=== PATIENT | male | born 1965 | race Caucasian/White ===

== ENCOUNTER 2016-09-20 15:26 | Emergency (ER) | payer SELFPAY | END 2016-09-20 21:22 | disposition left against medical advice (07) | LOC: D.ER 15:26 | DX: H57.11 Ocular pain, right eye (principal) ==

== ENCOUNTER 2016-09-23 16:44 | Emergency (ER) | payer OTHER | END 2016-09-23 18:59 | disposition home or self-care (01) | LOC: D.ER 16:44 | DX: S05.01XA Injury of conjunctiva and corneal abrasion without foreign body, right eye, initial encounter (principal); X58.XXXA Exposure to other specified factors, initial encounter; Y93.89 Activity, other specified; Y92.89 Other specified places as the place of occurrence of the external cause ==

== ENCOUNTER 2020-04-10 05:40 | Day surgery (SDC) | payer MEDICAID ==
[~2020-04-10] VITALS: Ht 188 cm; Wt 113.9 kg
[~2020-04-10 05:40] MED LIST: ADVIL200 MG; BENADRYL25 MG; CLARITIN 10 MG10 MG PO; CYCLOBENZAPRINE10 MG PO; GABAPENTIN300 MG PO; OMEPRAZOLE40 MG PO; PERCOCET 10-321 EAC1 PO; SINGULAIR10 MG; VENTOLIN HFA [SP8 GM
[2020-04-10 06:40] VITALS: BP 134/90; Ht 188 cm; Wt 113.9 kg
[2020-04-10] MEDS ORDERED: VISTARIL50 MG PO (06:45)
--- NOTE | 2020-04-10 14:03 | NUR ---
0927 IV D/C'D WITH CANNULA INTACT, PRESSURE HELD, AND DRSG PLACED. DISCHARGE INSTRUCTIONS GIVEN AND PT VERBALIZED AN UNDERSTANDING. DISCHARGED HOME IN STABLE CONDITION AND WITHOUT COMPLAINT
--- NOTE | 2020-04-10 15:56 | OP ---
PATIENT NAME: MARZENA CRONIN MEDICAL RECORD: [id number] :67 LOCATION:[facility] ADMISSION DATE: SURGEON: DEMETRIO JUNIOR DO DATE OF OPERATION: 04/10/2020 PROCEDURE PERFORMED: Left knee arthroscopy with partial medial meniscectomy. and. 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 INDICATIONS: Mr. Cronin is a 54-year-old male who has had left knee pain, popping, catching, and locking for quite some time. We got an MRI showing the above findings. I informed that he be at risk for continued pain to the chondromalacia, but that the popping, catching, and locking would get better with the terminale of the meniscus. He was okay with that and was aware of the risks including infection, bleeding, damage to nerves and vessels and the need for further surgery, continued pain, loss of motion of the leg, blood clots, and even . He signed the consent. SURGEON: Demetrio Junior DO DESCRIPTION OF PROCEDURE: The patient was taken to the operative suite, laid in supine position, given general anesthetic and LMA was placed. The left lower extremity was then prepped and draped in sterile fashion. He was then given 2 grams of Ancef. The timeout was performed, everyone was in agreeance with the correct side, site, patient and the procedure. I then began by injecting 0.25% Marcaine with epinephrine at the portal sites and established a lateral portal with an 11-blade scalpel. Trocar entered into the joint, inspected the suprapatellar pouch. No loose body seen in the lateral gutter or medial gutter. I then established a medial portal with an 18-gauge spinal needle and 11-blade scalpel. Trocar was then brought in and the probe was brought in. I probed the cartilage on the medial femoral condyle and saw that it was loose and had large chunk of it at the weightbearing portion, brought a shaver in and did abrasion chondroplasty there. I then made a valgus stress on the knee and got to the meniscus, it was torn from the middle portion of the meniscus all the way to the posterior horn on the undersurface. I trimmed that out with the biter and a shaver and then inspected the ACL, was in good repair and the lateral meniscus was inspected as well as the lateral cartilage with the knee [id number]-yyuh'ed and it was in good repair as well. I then saw that the patella tracked well in the trochlea. He did have some chondromalacia of the patella as well, probably grade II. I then turned the suction on and the water off, removed the excess fluid from the knee. Abran Mcdonnell, certified registered locksmith then closed the knee with 4-0 Monocryl in inverted interrupted fashion and placed Steri-Strips, Adaptic, 4 x 4's, ABD, Webril, Bong wrap on the knee and the patient was awakened and taken to recovery in stable condition. BLOOD LOSS: Minimal. COMPLICATIONS: None. TRANSINT:[id number] Voice Confirmation ID: [id number] DOCUMENT ID: [id number] OPERATIVE REPORT [id number] MONDAY,DEMETRIO SALGADO DO at 1556 CC: [id number] DICTATION DATE: 04/10/20916 IT BUSINESS PROCESS ARCHITECT: 04/10/20 1347 [facility] 04/10/20 [facility] [address] [place] [address]
== END 2020-04-10 09:30 | disposition home or self-care (01) ==
LOC: D.OPS 05:40 → D.PAN 07:00 → D.OPS 07:00
PROVIDERS: ATTEND Orthopaedic Surgery
DX: S83.242A Other tear of medial meniscus, current injury, left knee, initial encounter (principal); X58.XXXA Exposure to other specified factors, initial encounter; M25.561 Pain in right knee; M23.331 Other meniscus derangements, other medial meniscus, right knee

== ENCOUNTER → 2020-08-31 15:45 | Outpatient (CLI) | payer SELFPAY ==
[2020-04-24 12:46] VITALS: BMI 28.9
[~2020-08-31 15:45] MED LIST changes: +BUPRENORPHIN-N1 EACH SL; +VISTARIL50 MG PO
[2020-08-31 16:40] LABS: PROTEIN - BODY FLUID 3.9 G/DL
[2020-08-31 17:46] LABS: EOS BF 1 %; MACROPHAGES BF 78 %; MESOTHELIALS BF 6 %; NEUT - BF 5 %
== END | disposition home or self-care (01) ==
LOC: D.LABREF 15:45
PROVIDERS: ATTEND Orthopaedic Surgery
DX: M17.11 Unilateral primary osteoarthritis, right knee (principal)

== ENCOUNTER 2020-09-01 14:24 | Inpatient (IN) | payer MEDICAID ==
[~2020-09-01] VITALS: Ht 188 cm; Wt 111.4 kg
[2020-09-30] MEDS ORDERED: XANAX0.5 MG PO (12:49)
[2020-09-30] MEDS ORDERED: LIPITOR20 MG PO (12:50)
[2020-09-30] MEDS ORDERED: VOLTAREN100 GM TOPICAL (12:51)
[2020-09-30] MEDS ORDERED: TESTOSTERONE IM (12:52)
[2020-09-30 13:41] LABS: BASOPHILS 0.5 % (0-2); HEMOGLOBIN 12.2 g/dL (13.5-17.5); IMMATURE GRANULOCYTES 0.2 % (0-5); LYMPHOCYTE ABS# 1.93 10x3/uL (1.32-3.57); LYMPHOCYTES 31.3 % (15-50); MCHC 32.1 g/dL (31.0-37.0); MCV 90.3 fL (80.0-100.0); MEAN PLATELET VOLUME 10.4 fL (7.4-10.4); NEUTROPHIL ABS# 3.57 10x3/uL (1.78-5.38); PLATELET COUNT 247 10x3/uL (130-400); RBC 4.21 10x6/uL (4.20-6.10); RDW 13.8 % (11.5-14.5); WBC 6.2 10x3/uL (4.8-10.8)
[2020-09-30 13:53] LABS: CALC OSMOLALITY 279 mosm/kg (275-300); CALCIUM 8.7 mg/dL (8.5-10.1); CARBON DIOXIDE 32.7 mmol/L (21.0-32.0); CHLORIDE - SERUM 102 mmol/L (98-107); CREATININE - SERUM 0.9 mg/dL (0.6-1.3); GLUCOSE 100 mg/dL (74-106); POTASSIUM - SERUM 3.9 mmol/L (3.5-5.1); SODIUM 139 mmol/L (136-145); UREA NITROGEN 17 mg/dL (7-18); eGFR NON AFRICAN AMERICAN > 90 mL/min (90-120)
[2020-09-30 13:54] LABS: BILIRUBIN NEGATIVE (NEGATIVE); KETONE NEGATIVE (NEGATIVE); NITRITE NEGATIVE (NEGATIVE); UROBILINOGEN NORMAL mg/dL (< 2)
[2020-09-30 13:56] LABS: APTT 30.4 SECONDS (22.8-39.4); INR 1.07 (0.85-1.17); PROTIME 12.9 SECONDS (11.6-15.0)
[2020-10-06] VITALS (13 sets, daily range): BP systolic 110–175; BP diastolic 65–97; Ht 188 cm; Wt 111.4 kg
--- NOTE | 2020-10-06 10:06 | NUR ---
OPERATIVE LEG CLEANSED WITH HIBECLENS AND ALCOHOL PRIOR TO PREP FROM THIGH TO TOES CIRCUMFERENTIALLY. RIGHT LEG PREPPED WITH CHLORAPREP X2 FROM THIGH TO TOES CIRCUMFERENTIALLY. RN IN STERILE ATTIRE TO PREP. PLASMABLADE SET TO 6/8 GROUNDING PAD LEFT THIGH TRAFFIC KEPT TO MINIMUM
[2020-10-06 11:49] LABS: BASOPHILS 0.2 % (0-2); EOSINOPHILS 0.6 % (0-7); HEMOGLOBIN 12.1 g/dL (13.5-17.5); IMMATURE GRANULOCYTES 0.3 % (0-5); LYMPHOCYTE ABS# 0.87 10x3/uL (1.32-3.57); LYMPHOCYTES 8.6 % (15-50); MCH 29.1 pg (26.0-34.0); MCHC 32.7 g/dL (31.0-37.0); MCV 88.9 fL (80.0-100.0); MEAN PLATELET VOLUME 10.3 fL (7.4-10.4); MONOCYTES 0.9 % (2-11); NEUTROPHIL ABS# 9.08 10x3/uL (1.78-5.38); NEUTROPHILS 89.4 % (40-80); PLATELET COUNT 205 10x3/uL (130-400); RBC 4.16 10x6/uL (4.20-6.10); RDW 13.6 % (11.5-14.5); WBC 10.2 10x3/uL (4.8-10.8)
[2020-10-06 12:02] LABS: ALBUMIN 3.5 g/dL (3.4-5.0); ANION GAP 13.8 mmol/L (8-16); BILIRUBIN - TOTAL 0.22 mg/dL (0.2-1.3); CALCIUM 8.5 mg/dL (8.5-10.1); CARBON DIOXIDE 29.1 mmol/L (21.0-32.0); CREATININE - SERUM 1.1 mg/dL (0.6-1.3); POTASSIUM - SERUM 3.9 mmol/L (3.5-5.1); PROTEIN - SERUM 6.9 g/dL (6.4-8.2)
--- NOTE | 2020-10-06 14:45 | OP ---
PATIENT NAME: MARZENA CRONIN MEDICAL RECORD: [id number] :67 LOCATION:D. D.1209 ADMISSION DATE:10/06/20 SURGEON: DEMETRIO JUNIOR DO DATE OF OPERATION: 10/06/2020 PROCEDURE PERFORMED: Right total knee arthroplasty. PREOPERATIVE DIAGNOSIS: Right knee osteoarthritis. POSTOPERATIVE DIAGNOSIS: Right knee osteoarthritis. INDICATIONS: Mr. Cronin is a 55-year-old male who has had right knee pain for quite some time. He was tired dealing with the pain. I then scoped in, told him he had a grade IV chondromalacia of the medial femoral condyle as well as the patella and he would need a knee replacement. This was several months ago. He was aware of that and aware of the risks of the surgery including infection, bleeding, damage to nerves, vessels, need for further surgery, continued pain, failure of implants, loosening, blood clots, arthrofibrosis of the knee and even and he signed the consent. SURGEON: Demetrio Junior DO DESCRIPTION OF PROCEDURE: The patient was taken to the operative suite, after given a block by anesthesia in the preoperative area, laid in supine position, given general anesthetic and LMA was placed. He was given 2 grams of Ancef, 80 of mg gentamicin and a gram of TXA. The right lower extremity was then prepped and draped in sterile fashion. Timeout was performed. Everyone was in agreeance with the correct side, site, patient and procedure. I then marked out the incision on the anterior knee, covered in Ioban, used a 10-blade scalpel made careful dissection down to the capsule. I used a fresh 10-blade, made a medial parapatellar approach to the capsule. We coagulated any bleeding with Aquamantys. Patella was then everted and removed part of the fat pad. I then milled down the patella and drilled a 32 patella and mixed the cement, put the cement on the patella and on the implants, squeezed it into place and removed the excess cement and then squeezed it around for 10 minutes while it dried. While it was drying, I exposed the femur, removed the ACL into the femoral canal with a drill and cut the distal femur off the intramedullary guide after I pinned it into place, removed the mehdi. I then exposed the tibia and cut the proximal tibia through extramedullary guide and then remove that, brought the knee in extension and removed menisci as well and the extra bone that was not removed. I then flexed the knee up and sized the femur to be a 12. I used a 4-in-1 cutting block then and cut the femur through the 4-in-1 cutting block, removed the bone. I then sized the tibia to be a G and pinned it into place and trialed the 12-femur and put a 10-poly in between and fit very well, had good stability, varus and valgus stress in extension and flexion. I then drilled the lug holes for the femur and the 2 holes on the tibia, irrigated and then impacted on the TM tibia and TM femur and then put a 10-poly medial congruent bearing in between and locked it into place. I then brought the knee into extension and irrigated with 10% povidine and iodine and 500 mL normal saline solution, let it sit for a minute and then irrigated that out with a liter of normal saline. I then used the joint cocktail, then injected around the periosteum into the quad and the knee and then put in the vancomycin and tobramycin powder, closed the knee capsule with #1 Vicryl in clmaop-th-hjpet fashion and Abran Mcdonnell, certified ophthalmic technologist ran a #1 Stratafix over that and then closed the skin with 2-0 Vicryl in inverted interrupted fashion, OPERATIVE REPORT [id number] MONDAY,MARZENA OCHOA put ZipLine, Adaptic, 4 x 4s, ABD, cast padding and an Bong wrap and a MU hose stocking up to the knee. He was then awakened and taken to recovery in stable condition, given another gram of TXA prior to closing. Blood loss was approximately 200 mL. COMPLICATIONS: None. TRANSINT:[id number] Voice Confirmation ID: [id number] DOCUMENT ID: [id number] DEMETRIO JUNIOR DO at 1445 CC: [id number] DICTATION DATE: 10/06/2059 ASBESTOS MICROSCOPIST: 10/06/20 1404 ADM IN [facility] [address] [place] [address]
--- NOTE | 2020-10-06 19:30 | MORECARE ---
CASE MANAGEMENT DISCHARGE SUMMARY PATIENT: MARZENA HANSEN UNIT: [id number] ADM DATE: 10/06/20 AGE: 55 : 67 SEX: M ROOM/BED: D.1209 AUTHOR: DIDI,DOC PHYSICIAN: REFERRING PHYSICIAN: OSCAR JUNIOR DO DATE OF SERVICE: 10/06/20 Case Management Discharge Planning Summary DCP REVIEW SUMMARY ANTICIPATED D/C DATE: EXPECTED LOS : CASE STATUS: DCP Initiated INITIAL REVIEW: 10/06/2020 INITIAL REVIEWER: Kannan Rodrigues FINAL DISCHARGE DISPOSITION: : FINAL REVIEWER: FINAL REVIEW DATE: DCP Focus Questions & Answers QUESTION: ANSWER : PATIENT: MARZENA HANSEN ENCOUNTER: [id number] MEDICAL RECORD#: [id number] ADMISSION DATE: 10/06/2020 DISCHARGE DATE: ATTENDING MD: OSCAR LUNDBERG : AGE: 55 MARITAL STATUS: S DC PLAN ID: [id number] FACILITY: [facility] PRINTED ON: 10/06/20 19:30 CT All edits/amendments must be made on the electronic document DICTATION DATE: 10/06/201929 LINE INSPECTOR: JOSE 10/06/201929 RPT#: [id number] DC DATE: STATUS: ADM IN [facility] [address] [place] [address] END OF REPORT
--- NOTE | 2020-10-06 19:30 | NUR ---
ALERT C/O PAIN TO RIGHT KNEE, REQUESTING PAIN MEDICATION, PEROCET AND VISTRIL GIVEN ORDERED, CPM IN USE, FALL PRECAUTIONS IN PLACE, SEE SHIFT ASSESSMENT, CALL LIGHT IN REACH
--- NOTE | 2020-10-06 19:41 | MORECARE ---
CASE MANAGEMENT DISCHARGE SUMMARY PATIENT: MONDAYMARZENA UNIT: [id number] ADM DATE: 10/06/20 AGE: 55 : 67 SEX: M ROOM/BED: D.1209 AUTHOR: DIDI,DOC PHYSICIAN: REFERRING PHYSICIAN: OSCAR JUNIOR DO DATE OF SERVICE: 10/06/20 Case Management Discharge Planning Summary COMMENTS ENTERED DATE: 10/06/20 19:34 CT COMMENT TYPE: Discharge Planning REVIEWER: Kannan Rodrigues CM met with patient to complete DC plan and to evaluate needs. Patient lives independently alone but has family support and help. Patient stated that their home is safe and has electricity and running water. Patient stated that he has no problems paying for medications and he fills his medications at [facility]. Patient stated that his primary care physician is Dr. Lopez. At discharge, the patient plans to convalesce at his sister's home, Ramya Robles, . CM discussed availability of home health, rehab services, and medical equipment. Patient stated that his CPM, Walker, Shower Chair, and Shower Grab Bar arrived at his home already. Patient declined HHS, SNF, IPR, and DME. Patient stated that he wants OP therapy with any agency in network but prefers to have therapy with the agencies on [facility] (either [facility] or [facility]). LEVI signed and placed in chart. Patient voiced no other needs at this time and is satisfied with DC plan. Transportation provider at discharge will be with his sister, Ramya. CM will continue to follow and will assist as needed with dc plans/needs. DCP REVIEW SUMMARY ANTICIPATED D/C DATE: EXPECTED LOS : CASE STATUS: DCP Initiated INITIAL REVIEW: 10/06/2020 INITIAL REVIEWER: Kannan Rodrigues FINAL DISCHARGE DISPOSITION: : FINAL REVIEWER: FINAL REVIEW DATE: DCP Focus Questions & Answers DCP Evaluation QUESTION: ANSWER Patient and/or caregiver agree upon recommended discharge plan? : Yes Family / Caregiver's ability to cope with chronic illness: : a. Adequate (ability to meet patient's medical needs, ensures patient attends medical appts.) Patient's current cognitive status: : *Oriented to person, place, situation, time and present Patient's ability to cope with chronic illness : d. No chronic illness Patient gives permission to discuss discharge plans with: (name, relationship and number) : sisterRamya, Does the patient have the ability to pay for or attain post discharge needs / services? : Yes Functional screen assessment: : Basic needs can adequately be met by self Family / Caregiver's ability to cope with chronic illness: : a. Adequate (ability to meet patient's medical needs, ensures patient attends medical appts.) Physical Status: : Independent with ADL's Equipment needed for post hospitalization: : Walker - Rolling Equipment needed for post hospitalization: : Shower Chair Is there a likelihood that the patient will require additional services to return to the preadmission environment? : Yes Living Arrangements: : Home Alone with Support Other Equipment comments: : CPM Patient with capacity for self-care or can be cared for in same environment as prior to hospitalization? : Yes Baseline cognitive status: : *Oriented to person, place, situation, time and present Physical environment modification needed / anticipated for discharge: : No Medication Management: : Patient states can read and understand medication labels Medication Management: : Patient states can afford medications Pharmacy name(s): : [facility] Does Patient have transportation to get home and to follow-up medical appointments when discharged from the hospital? : Yes Would patient like to participate in any Care Coordination programs (if applicable): : Not applicable Does the patient have electricity at home? : Yes Does the patient have running water in their house? : Yes Equipment in use: : None Mental health screen: : No mental health history DCP Re-evaluation QUESTION: ANSWER Would patient like to participate in any Care Coordination programs (if applicable): : Not applicable PATIENT: TYRONEMAREZNA SWANSON ENCOUNTER: [id number] MEDICAL RECORD#: [id number] ADMISSION DATE: 10/06/2020 DISCHARGE DATE: ATTENDING MD: OSCAR LUNDBERG : AGE: 55 MARITAL STATUS: S DC PLAN ID: [id number] FACILITY: [facility] PRINTED ON: 10/06/20 19:41 CT All edits/amendments must be made on the electronic document DICTATION DATE: 10/06/201940 CHART SNATCHER: JOSE 10/06/201940 RPT#: [id number] DC DATE: STATUS: ADM IN [facility] [address] [place] [address] END OF REPORT
[2020-10-07] VITALS: BP 131/84
[2020-10-07 06:00] VITALS: BP 131/73
[2020-10-07 07:49] LABS: BASOPHILS 0 % (0-2); EOSINOPHILS 0.2 % (0-7); HEMATOCRIT 32.9 % (42.0-54.0); HEMOGLOBIN 10.6 g/dL (13.5-17.5); IMMATURE GRANULOCYTES 0.1 % (0-5); LYMPHOCYTE ABS# 1.15 10x3/uL (1.32-3.57); LYMPHOCYTES 11.1 % (15-50); MCH 28.6 pg (26.0-34.0); MCHC 32.2 g/dL (31.0-37.0); MCV 88.9 fL (80.0-100.0); MEAN PLATELET VOLUME 10.8 fL (7.4-10.4); MONOCYTES 6.2 % (2-11); NEUTROPHILS 82.4 % (40-80); PLATELET COUNT 238 10x3/uL (130-400); RDW 13.7 % (11.5-14.5); WBC 10.3 10x3/uL (4.8-10.8)
[2020-10-07 08:06] LABS: ALBUMIN 3.1 g/dL (3.4-5.0); ANION GAP 14.6 mmol/L (8-16); BILIRUBIN - TOTAL 0.32 mg/dL (0.2-1.3); CALCIUM 7.9 mg/dL (8.5-10.1); CARBON DIOXIDE 26.5 mmol/L (21.0-32.0); CREATININE - SERUM 1.1 mg/dL (0.6-1.3); POTASSIUM - SERUM 4.1 mmol/L (3.5-5.1); PROTEIN - SERUM 6.2 g/dL (6.4-8.2)
--- NOTE | 2020-10-07 08:29 | MORECARE ---
CASE MANAGEMENT DISCHARGE SUMMARY PATIENT: MONDAYMARZENA UNIT: [id number] ADM DATE: 10/06/20 AGE: 55 : 67 SEX: M ROOM/BED: D.1209 AUTHOR: DIDI,DOC PHYSICIAN: REFERRING PHYSICIAN: OSCAR JUNIOR DO DATE OF SERVICE: 10/07/20 Case Management Discharge Planning Summary COMMENTS ENTERED DATE: 10/07/20 8:26 CT COMMENT TYPE: Discharge Planning REVIEWER: Phylicia Smith CM met with patient to clarify what OP PT he wanted and who was providing transportation to the therapy. Patient states "I don't know, I do not have anyone to drive me to therapy." I spoke with him about having home health for a couple of weeks until he was released to drive. He agrees to home health. I called [facility] with [facility] and clinical faxed. CM will continue to follow and assist with discharge planning/needs. ENTERED DATE: 10/06/20 19:34 CT COMMENT TYPE: Discharge Planning REVIEWER: Kannan Rodrigues CM met with patient to complete DC plan and to evaluate needs. Patient lives independently alone but has family support and help. Patient stated that their home is safe and has electricity and running water. Patient stated that he has no problems paying for medications and he fills his medications at [facility]. Patient stated that his primary care physician is Dr. Lopez. At discharge, the patient plans to convalesce at his sister's home, Ramya Robles, . CM discussed availability of home health, rehab services, and medical equipment. Patient stated that his CPM, Walker, Shower Chair, and Shower Grab Bar arrived at his home already. Patient declined HHS, SNF, IPR, and DME. Patient stated that he wants OP therapy with any agency in network but prefers to have therapy with the agencies on [facility] (either [facility]hab or [facility]). LEVI signed and placed in chart. Patient voiced no other needs at this time and is satisfied with DC plan. Transportation provider at discharge will be with his sister, Ramya. CM will continue to follow and will assist as needed with dc plans/needs. DCP REVIEW SUMMARY ANTICIPATED D/C DATE: EXPECTED LOS : CASE STATUS: DCP Initiated INITIAL REVIEW: 10/06/2020 INITIAL REVIEWER: Kannan Rodrigues FINAL DISCHARGE DISPOSITION: : FINAL REVIEWER: FINAL REVIEW DATE: DCP Focus Questions & Answers DCP Evaluation QUESTION: ANSWER Patient and/or caregiver agree upon recommended discharge plan? : Yes Family / Caregiver's ability to cope with chronic illness: : a. Adequate (ability to meet patient's medical needs, ensures patient attends medical appts.) Patient's current cognitive status: : *Oriented to person, place, situation, time and present Patient's ability to cope with chronic illness : d. No chronic illness Patient gives permission to discuss discharge plans with: (name, relationship and number) : sisterRamya, Does the patient have the ability to pay for or attain post discharge needs / services? : Yes Functional screen assessment: : Basic needs can adequately be met by self Family / Caregiver's ability to cope with chronic illness: : a. Adequate (ability to meet patient's medical needs, ensures patient attends medical appts.) Physical Status: : Independent with ADL's Equipment needed for post hospitalization: : Walker - Rolling Equipment needed for post hospitalization: : Shower Chair Is there a likelihood that the patient will require additional services to return to the preadmission environment? : Yes Living Arrangements: : Home Alone with Support Other Equipment comments: : CPM Patient with capacity for self-care or can be cared for in same environment as prior to hospitalization? : Yes Baseline cognitive status: : *Oriented to person, place, situation, time and present Physical environment modification needed / anticipated for discharge: : No Medication Management: : Patient states can read and understand medication labels Medication Management: : Patient states can afford medications Pharmacy name(s): : [facility] Does Patient have transportation to get home and to follow-up medical appointments when discharged from the hospital? : Yes Would patient like to participate in any Care Coordination programs (if applicable): : Not applicable Does the patient have electricity at home? : Yes Does the patient have running water in their house? : Yes Equipment in use: : None Mental health screen: : No mental health history DCP Re-evaluation QUESTION: ANSWER Would patient like to participate in any Care Coordination programs (if applicable): : Not applicable PATIENT: MONDAYMARZENA ENCOUNTER: [id number] MEDICAL RECORD#: [id number] ADMISSION DATE: 10/06/2020 DISCHARGE DATE: ATTENDING MD: OSCAR LUNDBERG : AGE: 55 MARITAL STATUS: S DC PLAN ID: [id number] FACILITY: [facility] PRINTED ON: 10/07/20 8:29 CT All edits/amendments must be made on the electronic document DICTATION DATE: 10/07/20828 STENO TYPIST: DM 10/07/20828 RPT#: [id number] DC DATE: STATUS: ADM IN [facility] [address] [place] [address] END OF REPORT
[2020-10-07 08:55] VITALS: BP 141/80
--- NOTE | 2020-10-07 11:08 | NUR ---
PT REQUESTED HIS CLOTHES BE HUNG UP BEFORE THEY BECOME WRINKLED. CLOTHES WERE HUNG IN CLOSET IN PATIENTS ROOM AT 0900
--- NOTE | 2020-10-07 11:09 | NUR ---
PT REQUESTED LINENS CHANGED.
--- NOTE | 2020-10-07 11:44 | MORECARE ---
CASE MANAGEMENT DISCHARGE SUMMARY PATIENT: MONDAYMARZENA UNIT: [id number] ADM DATE: 10/06/20 AGE: 55 : 67 SEX: M ROOM/BED: D.1209 AUTHOR: DIDI,DOC PHYSICIAN: REFERRING PHYSICIAN: OSCAR JUNIOR DO DATE OF SERVICE: 10/07/20 Case Management Discharge Planning Summary COMMENTS ENTERED DATE: 10/07/20 8:26 CT COMMENT TYPE: Discharge Planning REVIEWER: Phylicia Smith CM met with patient to clarify what OP PT he wanted and who was providing transportation to the therapy. Patient states "I don't know, I do not have anyone to drive me to therapy." I spoke with him about having home health for a couple of weeks until he was released to drive. He agrees to home health. I called [facility] and clinical faxed. CM will continue to follow and assist with discharge planning/needs. ENTERED DATE: 10/06/20 19:34 CT COMMENT TYPE: Discharge Planning REVIEWER: Kannan Rodrigues CM met with patient to complete DC plan and to evaluate needs. Patient lives independently alone but has family support and help. Patient stated that their home is safe and has electricity and running water. Patient stated that he has no problems paying for medications and he fills his medications at [facility]. Patient stated that his primary care physician is Dr. Lopez. At discharge, the patient plans to convalesce at his sister's home, Ramya Robles, . CM discussed availability of home health, rehab services, and medical equipment. Patient stated that his CPM, Walker, Shower Chair, and Shower Grab Bar arrived at his home already. Patient declined HHS, SNF, IPR, and DME. Patient stated that he wants OP therapy with any agency in network but prefers to have therapy with the agencies on [facility] (either [facility] or [facility]). LEVI signed and placed in chart. Patient voiced no other needs at this time and is satisfied with DC plan. Transportation provider at discharge will be with his sister, Rmaya. CM will continue to follow and will assist as needed with dc plans/needs. DCP REVIEW SUMMARY ANTICIPATED D/C DATE: EXPECTED LOS : CASE STATUS: DCP Initiated INITIAL REVIEW: 10/06/2020 INITIAL REVIEWER: Kannan Rodrigues FINAL DISCHARGE DISPOSITION: : FINAL REVIEWER: FINAL REVIEW DATE: DCP Focus Questions & Answers DCP Evaluation QUESTION: ANSWER Patient and/or caregiver agree upon recommended discharge plan? : Yes Family / Caregiver's ability to cope with chronic illness: : a. Adequate (ability to meet patient's medical needs, ensures patient attends medical appts.) Patient's current cognitive status: : *Oriented to person, place, situation, time and present Patient's ability to cope with chronic illness : d. No chronic illness Patient gives permission to discuss discharge plans with: (name, relationship and number) : sisterRamya, Does the patient have the ability to pay for or attain post discharge needs / services? : Yes Functional screen assessment: : Basic needs can adequately be met by self Family / Caregiver's ability to cope with chronic illness: : a. Adequate (ability to meet patient's medical needs, ensures patient attends medical appts.) Physical Status: : Independent with ADL's Equipment needed for post hospitalization: : Walker - Rolling Equipment needed for post hospitalization: : Shower Chair Is there a likelihood that the patient will require additional services to return to the preadmission environment? : Yes Living Arrangements: : Home Alone with Support Other Equipment comments: : CPM Patient with capacity for self-care or can be cared for in same environment as prior to hospitalization? : Yes Baseline cognitive status: : *Oriented to person, place, situation, time and present Physical environment modification needed / anticipated for discharge: : No Medication Management: : Patient states can read and understand medication labels Medication Management: : Patient states can afford medications Pharmacy name(s): : [facility] Does Patient have transportation to get home and to follow-up medical appointments when discharged from the hospital? : Yes Would patient like to participate in any Care Coordination programs (if applicable): : Not applicable Does the patient have electricity at home? : Yes Does the patient have running water in their house? : Yes Equipment in use: : None Mental health screen: : No mental health history DCP Re-evaluation QUESTION: ANSWER Would patient like to participate in any Care Coordination programs (if applicable): : Not applicable PATIENT: MONDAYMARZENA ENCOUNTER: [id number] MEDICAL RECORD#: [id number] ADMISSION DATE: 10/06/2020 DISCHARGE DATE: ATTENDING MD: OSCAR LUNDBERG : AGE: 55 MARITAL STATUS: S DC PLAN ID: [id number] FACILITY: [facility] PRINTED ON: 10/07/20 11:44 CT All edits/amendments must be made on the electronic document DICTATION DATE: 10/07/20 1144 DIPPER AND BAKER: JOSE 10/07/20 1144 RPT#: [id number] DC DATE: STATUS: ADM IN [facility] [address] [place] [address] END OF REPORT
[2020-10-07] MEDS ORDERED: ELIQUIS2.5 MG PO (12:19)
[2020-10-07] MEDS ORDERED: PERCOCET 10-321 EAC1 PO (12:20)
--- NOTE | 2020-10-07 15:25 | NUR ---
WALKED 200 FEET WITH WALKER MIN ASSIT USED GT BELT
--- NOTE | 2020-10-07 18:00 | NUR ---
ATE ALL OF SUPPER. REQUESTED AND GIVEN 15MG TORADOL SLOW IVP FOR PAIN PRIOR TO PLACING ON CPM. VOIDED 500cc CLEAR YELLOW URINE USING URINAL. DENIES NEEDS. NO CHANGES NOTED.
[2020-10-07 20:00] VITALS: BP 156/89
[2020-10-08 04:00] VITALS: BP 166/94
[2020-10-08 07:10] LABS: BASOPHILS 0.1 % (0-2); EOSINOPHILS 2.6 % (0-7); HEMATOCRIT 33.1 % (42.0-54.0); HEMOGLOBIN 10.9 g/dL (13.5-17.5); IMMATURE GRANULOCYTES 0.1 % (0-5); LYMPHOCYTE ABS# 1.56 10x3/uL (1.32-3.57); MCH 29.1 pg (26.0-34.0); MCHC 32.9 g/dL (31.0-37.0); MCV 88.3 fL (80.0-100.0); MEAN PLATELET VOLUME 10.3 fL (7.4-10.4); MONOCYTES 7.8 % (2-11); NEUTROPHIL ABS# 5.08 10x3/uL (1.78-5.38); NEUTROPHILS 68.4 % (40-80); PLATELET COUNT 193 10x3/uL (130-400); RBC 3.75 10x6/uL (4.20-6.10); RDW 13.6 % (11.5-14.5)
[2020-10-08 07:18] VITALS: BP 185/97
[2020-10-08 07:20] LABS: WBC 7.4 10x3/uL (4.8-10.8)
--- NOTE | 2020-10-08 07:24 | NUR ---
AWAKE AND ALERT. ORIENTED X3. C/O RIGHT KNEE PAIN AT THIS TIME. ON CPM. WILL GIVE PRN WHEN IT'S TIME. LUNGS ARE CLEAR BILATERALLY, NO COUGH NOTED. USED IS INSTRUCTED. SL TO LEFT HAND IS PATENT WITHOUT REDNESS AT INSERTION SITE. SKIN IS INTACT WITHOUT REDNESS EXCEPT INCISION TO RIGHT KNEE WHICH HAS A DRY INTACT DRESSING IN PLACE. DENIES NEEDS.
--- NOTE | 2020-10-08 07:30 | NUR ---
REQUESTED AND GIVEN ONE PERCOCET FOR C/O RIGHT KNEE PAIN LEVEL 10. ICE APPLIED TO AREA WELL. WILL MONITOR.
[2020-10-08 07:33] LABS: ALBUMIN 3.2 g/dL (3.4-5.0); ALKALINE PHOSPHATASE 92 U/L (30-120); ALT (SGPT) 42 U/L (10-68); BILIRUBIN - TOTAL 0.36 mg/dL (0.2-1.3); CALC OSMOLALITY 278 mosm/kg (275-300); CALCIUM 8.5 mg/dL (8.5-10.1); CHLORIDE - SERUM 100 mmol/L (98-107); CREATININE - SERUM 0.9 mg/dL (0.6-1.3); GLUCOSE 151 mg/dL (74-106); POTASSIUM - SERUM 4.1 mmol/L (3.5-5.1); PROTEIN - SERUM 6.5 g/dL (6.4-8.2); SODIUM 139 mmol/L (136-145); UREA NITROGEN 8 mg/dL (7-18); eGFR NON AFRICAN AMERICAN > 90 mL/min (90-120)
--- NOTE | 2020-10-08 08:55 | NUR ---
ATE ALL OF BREAKFAST. DENIES NEEDS. REPORTS PAIN IMPROVED SOMEWHAT. TOOK AM MEDS WITHOUT DIFFICULTY.
--- NOTE | 2020-10-08 11:22 | NUR ---
DISCHARGE ORDERS RECEIVED. DISCHARGE INSTRUCTIONS GIVEN BOTH VERBALLY AND WRITTEN. ALL QUESTIONS ANSWERED. PATIENT VERBALIZED UNDERSTANDING OF SAME. DRESSING CHANGED TO RIGHT KNEE. INCISION IS CLEAN DRY AND WELL APPROXIMATED. SL TO LEFT HAND D/C WITH CATHETER INTACT. REQUESTED AND GIVEN 50MG VISTARIL IWTH PERCOCET PO FOR C/O RIGHT KNEE PAIN LEVEL 10. WILL MONITOR. ALL BELONGINGS WITH PATIENT.
--- NOTE | 2020-10-08 11:25 | MORECARE ---
CASE MANAGEMENT DISCHARGE SUMMARY PATIENT: MONDAYMARZENA UNIT: [id number] ADM DATE: 10/06/20 AGE: 55 : 67 SEX: M ROOM/BED: D.1209 AUTHOR: DIDI,DOC PHYSICIAN: REFERRING PHYSICIAN: OSCAR JUNIOR DO DATE OF SERVICE: 10/08/20 Case Management Discharge Planning Summary COMMENTS ENTERED DATE: 10/07/20 8:26 CT COMMENT TYPE: Discharge Planning REVIEWER: Phylicia Smith CM met with patient to clarify what OP PT he wanted and who was providing transportation to the therapy. Patient states "I don't know, I do not have anyone to drive me to therapy." I spoke with him about having home health for a couple of weeks until he was released to drive. He agrees to home health. I called [facility] and clinical faxed. CM will continue to follow and assist with discharge planning/needs. ENTERED DATE: 10/06/20 19:34 CT COMMENT TYPE: Discharge Planning REVIEWER: Kannan Rodrigues CM met with patient to complete DC plan and to evaluate needs. Patient lives independently alone but has family support and help. Patient stated that their home is safe and has electricity and running water. Patient stated that he has no problems paying for medications and he fills his medications at [facility]. Patient stated that his primary care physician is Dr. Lopez. At discharge, the patient plans to convalesce at his sister's home, Ramya Robles, . CM discussed availability of home health, rehab services, and medical equipment. Patient stated that his CPM, Walker, Shower Chair, and Shower Grab Bar arrived at his home already. Patient declined HHS, SNF, IPR, and DME. Patient stated that he wants OP therapy with any agency in network but prefers to have therapy with the agencies on [facility] (either [facility] or [facility]). LEVI signed and placed in chart. Patient voiced no other needs at this time and is satisfied with DC plan. Transportation provider at discharge will be with his sister, Ramya. CM will continue to follow and will assist as needed with dc plans/needs. DCP REVIEW SUMMARY ANTICIPATED D/C DATE: EXPECTED LOS : CASE STATUS: DCP Initiated INITIAL REVIEW: 10/06/2020 INITIAL REVIEWER: Kannan Rodrigues FINAL DISCHARGE DISPOSITION: : FINAL REVIEWER: FINAL REVIEW DATE: DCP Focus Questions & Answers DCP Evaluation QUESTION: ANSWER Patient and/or caregiver agree upon recommended discharge plan? : Yes Family / Caregiver's ability to cope with chronic illness: : a. Adequate (ability to meet patient's medical needs, ensures patient attends medical appts.) Patient's current cognitive status: : *Oriented to person, place, situation, time and present Patient's ability to cope with chronic illness : d. No chronic illness Patient gives permission to discuss discharge plans with: (name, relationship and number) : sisterRamya, Does the patient have the ability to pay for or attain post discharge needs / services? : Yes Functional screen assessment: : Basic needs can adequately be met by self Family / Caregiver's ability to cope with chronic illness: : a. Adequate (ability to meet patient's medical needs, ensures patient attends medical appts.) Physical Status: : Independent with ADL's Equipment needed for post hospitalization: : Walker - Rolling Equipment needed for post hospitalization: : Shower Chair Is there a likelihood that the patient will require additional services to return to the preadmission environment? : Yes Living Arrangements: : Home Alone with Support Other Equipment comments: : CPM Patient with capacity for self-care or can be cared for in same environment as prior to hospitalization? : Yes Baseline cognitive status: : *Oriented to person, place, situation, time and present Physical environment modification needed / anticipated for discharge: : No Medication Management: : Patient states can read and understand medication labels Medication Management: : Patient states can afford medications Pharmacy name(s): : [facility] Does Patient have transportation to get home and to follow-up medical appointments when discharged from the hospital? : Yes Would patient like to participate in any Care Coordination programs (if applicable): : Not applicable Does the patient have electricity at home? : Yes Does the patient have running water in their house? : Yes Equipment in use: : None Mental health screen: : No mental health history DCP Re-evaluation QUESTION: ANSWER Would patient like to participate in any Care Coordination programs (if applicable): : Not applicable PATIENT: MONDAYMARZENA ENCOUNTER: [id number] MEDICAL RECORD#: [id number] ADMISSION DATE: 10/06/2020 DISCHARGE DATE: ATTENDING MD: OSCAR LUNDBERG : AGE: 55 MARITAL STATUS: S DC PLAN ID: [id number] FACILITY: [facility] PRINTED ON: 10/08/20 11:24 CT All edits/amendments must be made on the electronic document DICTATION DATE: 10/08/20 112 DRYWALL HANGER HELPER: JOSE 10/08/20 1124 RPT#: [id number] DC DATE: STATUS: ADM IN [facility] [address] [place] [address] END OF REPORT
--- NOTE | 2020-10-08 11:37 | MORECARE ---
CASE MANAGEMENT DISCHARGE SUMMARY PATIENT: MONDAYMARZENA UNIT: [id number] ADM DATE: 10/06/20 AGE: 55 : 67 SEX: M ROOM/BED: D.1209 AUTHOR: DIDI,DOC PHYSICIAN: REFERRING PHYSICIAN: OSCAR JUNIOR DO DATE OF SERVICE: 10/08/20 Case Management Discharge Planning Summary COMMENTS ENTERED DATE: 10/07/20 8:26 CT COMMENT TYPE: Discharge Planning REVIEWER: Phylicia Smith CM met with patient to clarify what OP PT he wanted and who was providing transportation to the therapy. Patient states "I don't know, I do not have anyone to drive me to therapy." I spoke with him about having home health for a couple of weeks until he was released to drive. He agrees to home health. I called [facility] and clinical faxed. CM will continue to follow and assist with discharge planning/needs. ENTERED DATE: 10/06/20 19:34 CT COMMENT TYPE: Discharge Planning REVIEWER: Kannan Rodrigues CM met with patient to complete DC plan and to evaluate needs. Patient lives independently alone but has family support and help. Patient stated that their home is safe and has electricity and running water. Patient stated that he has no problems paying for medications and he fills his medications at [facility]. Patient stated that his primary care physician is Dr. Lopez. At discharge, the patient plans to convalesce at his sister's home, Ramya Robles, . CM discussed availability of home health, rehab services, and medical equipment. Patient stated that his CPM, Walker, Shower Chair, and Shower Grab Bar arrived at his home already. Patient declined HHS, SNF, IPR, and DME. Patient stated that he wants OP therapy with any agency in network but prefers to have therapy with the agencies on [facility] (either [facility] or [facility]). LEVI signed and placed in chart. Patient voiced no other needs at this time and is satisfied with DC plan. Transportation provider at discharge will be with his sister, Ramya. CM will continue to follow and will assist as needed with dc plans/needs. DCP REVIEW SUMMARY ANTICIPATED D/C DATE: EXPECTED LOS : CASE STATUS: DCP Initiated INITIAL REVIEW: 10/06/2020 INITIAL REVIEWER: Kannan Rodrigues FINAL DISCHARGE DISPOSITION: : FINAL REVIEWER: FINAL REVIEW DATE: DCP Focus Questions & Answers DCP Evaluation QUESTION: ANSWER Patient and/or caregiver agree upon recommended discharge plan? : Yes Family / Caregiver's ability to cope with chronic illness: : a. Adequate (ability to meet patient's medical needs, ensures patient attends medical appts.) Patient's current cognitive status: : *Oriented to person, place, situation, time and present Patient's ability to cope with chronic illness : d. No chronic illness Patient gives permission to discuss discharge plans with: (name, relationship and number) : sisterRamya, Does the patient have the ability to pay for or attain post discharge needs / services? : Yes Functional screen assessment: : Basic needs can adequately be met by self Family / Caregiver's ability to cope with chronic illness: : a. Adequate (ability to meet patient's medical needs, ensures patient attends medical appts.) Physical Status: : Independent with ADL's Equipment needed for post hospitalization: : Walker - Rolling Equipment needed for post hospitalization: : Shower Chair Is there a likelihood that the patient will require additional services to return to the preadmission environment? : Yes Living Arrangements: : Home Alone with Support Other Equipment comments: : CPM Patient with capacity for self-care or can be cared for in same environment as prior to hospitalization? : Yes Baseline cognitive status: : *Oriented to person, place, situation, time and present Physical environment modification needed / anticipated for discharge: : No Medication Management: : Patient states can read and understand medication labels Medication Management: : Patient states can afford medications Pharmacy name(s): : [facility] Does Patient have transportation to get home and to follow-up medical appointments when discharged from the hospital? : Yes Would patient like to participate in any Care Coordination programs (if applicable): : Not applicable Does the patient have electricity at home? : Yes Does the patient have running water in their house? : Yes Equipment in use: : None Mental health screen: : No mental health history DCP Re-evaluation QUESTION: ANSWER Would patient like to participate in any Care Coordination programs (if applicable): : Not applicable PATIENT: MONDAYMARZENA ENCOUNTER: [id number] MEDICAL RECORD#: [id number] ADMISSION DATE: 10/06/2020 DISCHARGE DATE: 10/08/2020 ATTENDING MD: OSCAR LUNDBERG : AGE: 55 MARITAL STATUS: S DC PLAN ID: [id number] FACILITY: [facility] PRINTED ON: 10/08/20 11:37 CT All edits/amendments must be made on the electronic document DICTATION DATE: 10/08/201136 BANQUET FOOD SERVER: DM 10/08/20 113 RPT#: [id number] DC DATE:10/08/20 STATUS: DIS IN [facility] [address] [place] [address] END OF REPORT
--- NOTE | 2020-10-12 11:32 | MORECARE ---
CASE MANAGEMENT DISCHARGE SUMMARY PATIENT: MONDAYMARZENA UNIT: [id number] ADM DATE: 10/06/20 AGE: 55 : 67 SEX: M ROOM/BED: D.1209 AUTHOR: DIDI,DOC PHYSICIAN: REFERRING PHYSICIAN: OSCAR JUNIOR DO DATE OF SERVICE: 10/12/20 Case Management Discharge Planning Summary COMMENTS ENTERED DATE: 10/07/20 8:26 CT COMMENT TYPE: Discharge Planning REVIEWER: Phylicia Smith CM met with patient to clarify what OP PT he wanted and who was providing transportation to the therapy. Patient states "I don't know, I do not have anyone to drive me to therapy." I spoke with him about having home health for a couple of weeks until he was released to drive. He agrees to home health. I called [facility] and clinical faxed. CM will continue to follow and assist with discharge planning/needs. ENTERED DATE: 10/06/20 19:34 CT COMMENT TYPE: Discharge Planning REVIEWER: Kannan Rodrigues CM met with patient to complete DC plan and to evaluate needs. Patient lives independently alone but has family support and help. Patient stated that their home is safe and has electricity and running water. Patient stated that he has no problems paying for medications and he fills his medications at [facility]. Patient stated that his primary care physician is Dr. Lopez. At discharge, the patient plans to convalesce at his sister's home, Ramya Robles, . CM discussed availability of home health, rehab services, and medical equipment. Patient stated that his CPM, Walker, Shower Chair, and Shower Grab Bar arrived at his home already. Patient declined HHS, SNF, IPR, and DME. Patient stated that he wants OP therapy with any agency in network but prefers to have therapy with the agencies on [facility] (either [facility] or [facility]). LEVI signed and placed in chart. Patient voiced no other needs at this time and is satisfied with DC plan. Transportation provider at discharge will be with his sister, Ramya. CM will continue to follow and will assist as needed with dc plans/needs. DCP REVIEW SUMMARY ANTICIPATED D/C DATE: EXPECTED LOS : CASE STATUS: DCP Initiated INITIAL REVIEW: 10/06/2020 INITIAL REVIEWER: Kannan Rodrigues FINAL DISCHARGE DISPOSITION: : FINAL REVIEWER: FINAL REVIEW DATE: DCP Focus Questions & Answers DCP Evaluation QUESTION: ANSWER Patient and/or caregiver agree upon recommended discharge plan? : Yes Family / Caregiver's ability to cope with chronic illness: : a. Adequate (ability to meet patient's medical needs, ensures patient attends medical appts.) Patient's current cognitive status: : *Oriented to person, place, situation, time and present Patient's ability to cope with chronic illness : d. No chronic illness Patient gives permission to discuss discharge plans with: (name, relationship and number) : sisterRamya, Does the patient have the ability to pay for or attain post discharge needs / services? : Yes Functional screen assessment: : Basic needs can adequately be met by self Family / Caregiver's ability to cope with chronic illness: : a. Adequate (ability to meet patient's medical needs, ensures patient attends medical appts.) Physical Status: : Independent with ADL's Equipment needed for post hospitalization: : Walker - Rolling Equipment needed for post hospitalization: : Shower Chair Is there a likelihood that the patient will require additional services to return to the preadmission environment? : Yes Living Arrangements: : Home Alone with Support Other Equipment comments: : CPM Patient with capacity for self-care or can be cared for in same environment as prior to hospitalization? : Yes Baseline cognitive status: : *Oriented to person, place, situation, time and present Physical environment modification needed / anticipated for discharge: : No Medication Management: : Patient states can read and understand medication labels Medication Management: : Patient states can afford medications Pharmacy name(s): : [facility] Does Patient have transportation to get home and to follow-up medical appointments when discharged from the hospital? : Yes Would patient like to participate in any Care Coordination programs (if applicable): : Not applicable Does the patient have electricity at home? : Yes Does the patient have running water in their house? : Yes Equipment in use: : None Mental health screen: : No mental health history DCP Re-evaluation QUESTION: ANSWER Would patient like to participate in any Care Coordination programs (if applicable): : Not applicable PATIENT: MONDAYMARZENA ENCOUNTER: [id number] MEDICAL RECORD#: [id number] ADMISSION DATE: 10/06/2020 DISCHARGE DATE: 10/08/2020 ATTENDING MD: OSCAR LUNDBERG : AGE: 55 MARITAL STATUS: S DC PLAN ID: [id number] FACILITY: [facility] PRINTED ON: 10/12/20 11:32 CT All edits/amendments must be made on the electronic document DICTATION DATE: 10/12/20 113 LIVE HANGER: DM 10/12/20 113 RPT#: [id number] DC DATE:10/08/20 STATUS: DIS IN [facility] [address] [place] [address] END OF REPORT
== END 2020-10-08 11:31 | disposition home health service (06) | DRG 470 ==
LOC: D.SDCHOLD 10-06 06:00 → D.M3 10-06 06:00 → D.SDCHOLD 10-06 08:00 → EDSTATUS 10-06 09:15 → D.OPS 10-06 09:15 → D.SDCHOLD 10-06 09:15 → D.M3 10-06 09:43
PROVIDERS: Family Medicine; ADMIT Orthopaedic Surgery; ATTEND Orthopaedic Surgery
PROC: 0SRC0J9 Replacement of Right Knee Joint with Synthetic Substitute, Cemented, Open Approach (ICD-10-PCS; principal; 2020-10-06 08:00)
DX: M17.11 Unilateral primary osteoarthritis, right knee (principal); I10 Essential (primary) hypertension; K21.9 Gastro-esophageal reflux disease without esophagitis; J45.909 Unspecified asthma, uncomplicated; G89.29 Other chronic pain; M54.9 Dorsalgia, unspecified; D64.9 Anemia, unspecified; G62.9 Polyneuropathy, unspecified; F12.90 Cannabis use, unspecified, uncomplicated; E29.1 Testicular hypofunction